=== PATIENT | female | born 1975 | race Caucasian/White ===

== ENCOUNTER 2019-07-14 12:05 | Emergency (ER) | payer BC ==
[2019-07-14 13:15] VITALS: BP 154/66
--- NOTE | 2019-07-14 13:23 | UC ---
Respiratory Complaint HPI - HPI Summary HPI Summary: Cold symptoms for 5 days, non-smoker, did not get a flu shot, hx pneumonia - History of Current Complaint Chief Complaint: UCRespiratory Stated Complaint: CHEST CONGESTION, SWOLLEN GLANDS, COUGH Time Seen by Provider: 07/14/19 13:22 Hx Obtained From: Patient ?: No Onset/Duration: Gradual Onset Timing: Constant Severity Initially: Mild Severity Currently: Mild Pain Intensity: 0 Character: Cough: Nonproductive Alleviating Factors: Nothing Associated Signs And Symptoms: Positive: Fever - Fever here but none noted at home, URI, Nasal Congestion - Allergies/Home Medications Allergies/Adverse Reactions: Allergies Allergy/AdvReac Type Severity Reaction Status Date / Time acetaminophen [From NyQuil] Allergy See Comment Verified 07/14/19 13:10 amoxicillin Allergy See Comment Verified 07/14/19 13:10 dextromethorphan Allergy See Comment Verified 07/14/19 13:10 [From NyQuil] doxylamine [From NyQuil] Allergy See Comment Verified 07/14/19 13:10 Penicillins Allergy See Comment Verified 07/14/19 13:10 pseudoephedrine [From NyQuil] Allergy See Comment Verified 07/14/19 13:10 Home Medications: Home Medications NK [No Home Medications Reported] 07/14/19 [History Confirmed 07/14/19] PMH/Surg Hx/FS Hx/Imm Hx Previously Healthy: Yes Respiratory History: Pneumonia - Surgical History Surgical History: Yes Surgery Procedure, Year, and Place: . Hysterectomy - Family History Known Family History: Positive: Non-Contributory - Social History Lives: With Family Alcohol Use: Occasionally Substance Use Type: None Smoking Status (MU): Never Smoked Tobacco Review of Systems All Other Systems Reviewed And Are Negative: Yes Constitutional: Positive: Fever ENT: Positive: Nasal Discharge Respiratory: Positive: Cough - Non-productive cough Is Patient Immunocompromised?: No Physical Exam Triage Information Reviewed: Yes Appearance: Well-Appearing, No Pain Distress, Well-Nourished Vital Signs: Initial Vital Signs Temp 99.9 F 07/14/19 13:10 Pulse 83 07/14/19 13:10 Resp 16 07/14/19 13:10 BP 154/66 07/14/19 13:10 Pulse Ox 100 07/14/19 13:10 Vital Signs Reviewed: Yes Eyes: Positive: Conjunctiva Clear ENT: Positive: Hearing grossly normal, Pharynx normal, TMs normal, Uvula midline Neck: Positive: Supple, Nontender, No Lymphadenopathy Respiratory: Positive: Lungs clear, Normal breath sounds, No respiratory distress, No accessory muscle use Cardiovascular: Positive: RRR, No Murmur, Pulses Normal, Brisk Capillary Refill Musculoskeletal Exam: Normal Neurological Exam: Normal Psychological Exam: Normal Skin Exam: Normal Respiratory Course/Dx - Course Course Of Treatment: Chest x-ray:negative Pt is comfortable here in no distress. - Differential Dx/Diagnosis Provider Diagnosis: URI (upper respiratory infection) Discharge ED - Sign-Out/Discharge Documenting (check all that apply): Patient Departure All imaging exams completed and their final reports reviewed: Yes - Discharge Plan Condition: Good Disposition: HOME Patient Education Materials: Upper Respiratory Infection (ED) Referrals: Anirudh Felipe MD [Medical Doctor] - Additional Instructions: Increase fluids, Over the counter cold medications as directed, Rest. - Billing Disposition and Condition Condition: GOOD Disposition: Home - Attestation Statements Provider Attestation: I was available for consult. This patient was seen by the [facility]. The patient was not presented to , seen by or examined by or -Malick Hurd MD
== END 2019-07-14 13:58 | disposition home or self-care (01) ==
LOC: UCCORT 12:05
DX: J06.9 Acute upper respiratory infection, unspecified (principal); Z88.0 Allergy status to penicillin; Z88.1 Allergy status to other antibiotic agents; Z88.8 Allergy status to other drugs, medicaments and biological substances; Z88.6 Allergy status to analgesic agent
CPT/HCPCS: 71046; 99201; G0463